=== PATIENT | male | born 1995 | race Caucasian/White ===

== ENCOUNTER 2017-05-18 13:50 | Emergency (ER) | payer OTHER ==
[2017-05-18] MEDS ORDERED: Sodium Chloride 0.9% 10 ML Syringe FLUSH PRN (13:56)
[2017-05-18] MEDS ORDERED: Sodium Chloride 0.9% 1,000 ML IV SCH (14:00)
--- NOTE | 2017-05-18 14:15 | EDM.PDOC ---
ED HPI GENERAL MEDICAL PROBLEM - General Chief Complaint: Lower Extremity Injury/Pain Stated Complaint: left knee hot, swollen. Fever Time Seen by Provider: 05/18/17 13:55 Source of Information: Reports: Patient History Limitations: Reports: No Limitations - History of Present Illness INITIAL COMMENTS - FREE TEXT/NARRATIVE: Patient is a 21-year-old who is seen today with chief complaint of general malaise left knee pain at this time his temperature is 1.3 88/37 heart rate was 111 patient states that on Sunday he developed left knee pain then he became hot and he became progressively weak and tired was brought in by his father for evaluation Onset: Today Duration: Hour(s): Location: Reports: Lower Extremity, Left Quality: Reports: Pressure, Sharp, Stabbing Severity: Severe Improves with: Reports: Immobilization Worsens with: Reports: Movement Context: Reports: Activity Associated Symptoms: Reports: Fever/Chills Left Knee Pain Score (Numeric/FACES): 9 - Related Data Allergies Allergy/AdvReac Type Severity Reaction Status Date / Time pollen extracts Allergy Sneezing Verified 05/18/17 13:51 Home Meds: Home Meds . [No Known Home Meds] 05/18/17 [History] Review of Systems - Review of Systems Review Of Systems: See Below Constitutional: Reports: No Symptoms Eyes: Reports: No Symptoms Ears: Reports: No Symptoms Nose: Reports: No Symptoms Mouth/Throat: Reports: No Symptoms Respiratory: Reports: No Symptoms Cardiovascular: Reports: No Symptoms GI/Abdominal: Reports: No Symptoms Genitourinary: Reports: No Symptoms Musculoskeletal: Reports: No Symptoms Skin: Reports: No Symptoms Neurological: Reports: No Symptoms Psychiatric: Reports: No Symptoms ED EXAM, GENERAL - Physical Exam Exam: See Below Exam Limited By: No Limitations General Appearance: Alert, WD/WN, No Apparent Distress Ears: Normal External Exam, Normal Canal, Hearing Grossly Normal, Normal TMs Ear Exam: Bilateral Ear: Auricle Normal, Canal Normal, TM normal Nose: Normal Inspection, Normal Mucosa, No Blood Throat/Mouth: Normal Inspection, Normal Lips, Normal Teeth, Normal Gums, Normal Oropharynx, Normal Voice, No Airway Compromise Head: Atraumatic, Normocephalic Neck: Normal Inspection, Supple, Non-Tender, Full Range of Motion Respiratory/Chest: No Respiratory Distress, Lungs Clear, Normal Breath Sounds, No Accessory Muscle Use, Chest Non-Tender Cardiovascular: Normal Peripheral Pulses, Regular Rate, Rhythm, No Edema, No Gallop, No JVD, No Murmur, No Rub GI/Abdominal: Normal Bowel Sounds, Soft, Non-Tender, No Organomegaly, No Distention, No Abnormal Bruit, No Mass (Male) Exam: Deferred Rectal (Males) Exam: Deferred Back Exam: Normal Inspection, Full Range of Motion, NT Extremities: Leg Pain (Left), Limited Range of Motion, Increased Warmth, Redness Neurological: Alert, Oriented, CN II-XII Intact, Normal Cognition, Normal Gait, Normal Reflexes, No Motor/Sensory Deficits Psychiatric: Normal Affect, Normal Mood Skin Exam: Warm, Dry, Intact, Normal Color, No Rash Lymphatic: No Adenopathy Course - Vital Signs Last Recorded V/S: Last Vital Signs Temp 104.3 F H 05/18/17 14:48 Pulse 109 H 05/18/17 15:04 Resp 14 05/18/17 15:04 BP 126/56 L 05/18/17 15:04 Pulse Ox 98 05/18/17 15:04 - Orders/Labs/Meds Orders: Active Orders 24 hr Category Date Time Status Knee 3V Lt [CR] Stat Exams 05/18/17 13:57 Taken CULTURE BLOOD [BC] Stat Lab 05/18/17 13:55 Ordered CULTURE BLOOD [BC] Stat Lab 05/18/17 14:25 Received CULTURE BODY FLUID [RM] Stat Lab 05/18/17 15:14 Uncollected Sodium Chloride 0.9% @ 150 MLS/HR (1000ml) Med 05/18/17 14:00 Ordered Sodium Chloride 0.9% [Normal Saline] 1,000 ml IV ASDIRECTED Sodium Chloride 0.9% [Saline Flush] Med 05/18/17 13:56 Ordered 10 ml FLUSH ASDIRECTED PRN Vancomycin 1.5 gm Med 05/18/17 15:30 Active Sodium Chloride 0.9% [Normal Saline] 500 ml IV ONETIME metroNIDAZOLE/Normal Saline [Flagyl 500 MG in NS 100 ML Med 05/18/17 14:49 Active ] 500 mg Premix Bag 1 bag IV ONETIME Saline Lock Insert [OM.PC] Stat Oth 05/18/17 13:56 Ordered Medication Orders Sodium Chloride (Normal Saline) 1,000 mls @ 150 mls/hr IV ASDIRECTED [facility] Last Admin: 05/18/17 14:34 Dose: 150 mls/hr Vancomycin HCl 1.5 gm/ Sodium (Chloride) 500 mls @ 220 mls/hr IV ONETIME ONE Stop: 05/18/17 17:46 Metronidazole 500 mg/ Premix 100 mls @ 200 mls/hr IV ONETIME ONE Stop: 05/18/17 15:18 Last Admin: 05/18/17 14:59 Dose: 200 mls/hr Sodium Chloride (Saline Flush) 10 ml FLUSH ASDIRECTED PRN PRN Reason: Keep Vein Open Labs: Laboratory Tests 05/18/17 05/18/17 05/18/17 Range/Units 14:15 14:15 14:15 WBC 13.5 H (4.0-10.2) K/uL RBC 4.91 (4.33-5.41) M/uL Hgb 15.1 (13.1-16.8) g/dL Hct 43.1 (39.0-49.0) % MCV 87.8 (84.0-98.0) fL MCH 30.8 (28.2-33.3) pg MCHC 35.0 (31.7-36.0) g/dL RDW 12.9 (11.2-14.1) % Plt Count 180 (150-350) K/uL Neut % (Auto) 77.9 (45.0-80.0) % Lymph % (Auto) 7.2 L (10.0-50.0) % Early % (Auto) 9.0 (2.0-14.0) % Eos % (Auto) 5.7 H (0.0-5.0) % Baso % (Auto) 0.2 (0.0-2.0) % Neut # (Auto) 10.50 H (1.40-7.00) K/uL Lymph # (Auto) 0.97 (0.50-3.50) K/uL Early # (Auto) 1.22 H (0.00-1.00) K/uL Eos # (Auto) 0.77 H (0.00-0.50) K/uL Baso # (Auto) 0.03 (0.00-0.20) K/uL Sodium 137 (136-145) mmol/L Potassium 3.6 (3.5-5.1) mmol/L Chloride 102 (98-107) mmol/L Carbon Dioxide 25.2 (21.0-32.0) mmol/L BUN 16 (7-18) mg/dL Creatinine 0.98 (0.51-1.17) mg/dL Est Cr Clr Drug Dosing 129.77 mL/min Estimated GFR (MDRD) > 60 mL/min Glucose 107 H (74-106) mg/dL Lactic Acid 1.5 (0.4-2.0) mmol/L Calcium 9.0 (8.5-10.1) mg/dL Meds: Medications Generic Name Dose Route Start Last Admin Trade Name Freq PRN Reason Stop Dose Admin Sodium Chloride 1,000 mls @ 150 mls/hr 05/18/17 14:00 05/18/17 14:34 Normal Saline IV 150 mls/hr ASDIRECTED RADHA Administration Vancomycin HCl 1.5 gm/ Sodium 500 mls @ 220 mls/hr 05/18/17 15:30 Chloride IV 05/18/17 17:46 ONETIME ONE Metronidazole 500 mg/ Premix 100 mls @ 200 mls/hr 05/18/17 14:49 05/18/17 14: 59 IV 05/18/17 15:18 200 mls/hr ONETIME ONE Administration Sodium Chloride 10 ml 05/18/17 13:56 Saline Flush FLUSH ASDIRECTED PRN Keep Vein Open Departure - Departure Time of Disposition: 15:17 Disposition: DC/Tfer to Acute Hospital 02 Condition: Serious Clinical Impression: Sepsis Septic joint of left knee joint Qualifiers: Septic arthritis organism: due to unspecified organism Qualified Code(s): M00.9 - Pyogenic arthritis, unspecified - Discharge Information Referrals: Samir Dale PA [[employer] Service Team Member] - Forms: ED Department Discharge Care Plan Goals: At this time fluids are given to the patient we will start him on empiric antibiotic after we do a aspiration of the left knee cultures obtained before antibiotic we discussed that with internal medicine at [facility] [place] a septic transfer will send this for as soon as possible Procedure left knee was prepped and draped using hexedine after appropriate prepping using a 10 mL syringe the infra patella capsule was aspirated under sterile condition and sent to lab for culture and sensitivity - My Orders Last 24 Hours: My Active Orders 05/18/17 13:55 CULTURE BLOOD [BC] Stat 05/18/17 13:56 Sodium Chloride 0.9% [Saline Flush] 10 ml FLUSH ASDIRECTED PRN Saline Lock Insert [OM.PC] Stat 05/18/17 13:57 Knee 3V Lt [CR] Stat 05/18/17 14:00 Sodium Chloride 0.9% @ 150 MLS/HR (1000ml) Sodium Chloride 0.9% [Normal Saline] 1,000 ml IV ASDIRECTED 05/18/17 14:25 CULTURE BLOOD [BC] Stat 05/18/17 14:49 metroNIDAZOLE/Normal Saline [Flagyl 500 MG in NS 100 ML] 500 mg Premix Bag 1 bag IV ONETIME 05/18/17 15:14 CULTURE BODY FLUID [RM] Stat 05/18/17 15:30 Vancomycin 1.5 gm Sodium Chloride 0.9% [Normal Saline] 500 ml IV ONETIME - Assessment/Plan Last 24 Hours: My Active Orders 05/18/17 13:55 CULTURE BLOOD [BC] Stat 05/18/17 13:56 Sodium Chloride 0.9% [Saline Flush] 10 ml FLUSH ASDIRECTED PRN Saline Lock Insert [OM.PC] Stat 05/18/17 13:57 Knee 3V Lt [CR] Stat 05/18/17 14:00 Sodium Chloride 0.9% @ 150 MLS/HR (1000ml) Sodium Chloride 0.9% [Normal Saline] 1,000 ml IV ASDIRECTED 05/18/17 14:25 CULTURE BLOOD [BC] Stat 05/18/17 14:49 metroNIDAZOLE/Normal Saline [Flagyl 500 MG in NS 100 ML] 500 mg Premix Bag 1 bag IV ONETIME 05/18/17 15:14 CULTURE BODY FLUID [RM] Stat 05/18/17 15:30 Vancomycin 1.5 gm Sodium Chloride 0.9% [Normal Saline] 500 ml IV ONETIME
[2017-05-18 14:44] LABS: CHLORIDE,CL 102 mmol/L (98-107); SODIUM,NA 137 mmol/L (136-145)
[2017-05-18] MEDS ORDERED: metroNIDAZOLE/Normal Saline 500 MG in Premix Bag 1 BAG IV ONE (14:49)
[2017-05-18 15:23] VITALS: BP 123/76
[2017-05-18] MEDS ORDERED: Vancomycin 1.5 GM in Sodium Chloride 0.9% 500 ML IV ONE (15:30)
== END 2017-05-18 16:20 ==
LOC: LL.ED 13:50
DX: A41.9 Sepsis, unspecified organism (principal); M25.562 Pain in left knee; M00.9 Pyogenic arthritis, unspecified; Z91.048 Other nonmedicinal substance allergy status
CPT/HCPCS: 20610; 36415; 73562; 80048; 83605; 85025; 87040; 87070; 96361; 96365; 96367; 99285; J3370; J7030; J7040; 87186